=== PATIENT | male | born 1970 | race African-American/Black ===

== ENCOUNTER → 2016-10-06 | Day surgery (SDC) | payer OTHER ==
[~2016-10-06] MED LIST: ACET325T9 PO; AMLO1CAP12 PO; DOCU100C5 PO; FENTANYL PF 100 MCG/2 ML VIAL. IV PRN; FENTANYL PF 100 MCG/2 ML VIAL. ONE; HYDR25CA PO; HYDR50TA6 PO; HYDROMORPHONE 2 MG/ML VIAL. IV PRN; IV RINGERS,LACTATED 1000ML 1,000 ML IV SCH; LIDOCAINE 1% 1 ML SYRINGE. ID PRN; LIDOCAINE 2% PF Vial for OR 5 ML VIAL. ONE; MORPHINE SULFATE 2 MG/ML DISP.SYRIN. IV PRN; NABU500T PO; ONDANSETRON PF 4 MG/2 ML VIAL. IV PRN; PANT40TA5 PO; PROCHLORPERAZINE 10 MG/2 ML VIAL. IV PRN; PROPOFOL 20 ML IV ONE; TRAM50TA PO
[2016-10-06 07:53] VITALS: BP 119/83
--- NOTE | 2016-10-11 12:28 | CONS ---
DATE OF CONSULTATION: 10/06/2016 REFERRING PHYSICIAN: Dr. Pascal. REASON FOR CONSULTATION: Gastric ulcer for surveillance. HISTORY OF PRESENT ILLNESS: This is a 46-year-old -[place] male with past medical history significant for osteoarthritis, hypertension, hyperlipidemia with the gastric ulcer diagnosed in July. He has been on medical therapy, is here today for surveillance exam to confirm ulcer healing as 2-4% gastric ulcers are in fact gastric malignancies. He states he has continued pain and discomfort, but has had no hematemesis. Weight and appetite are stable. PAST MEDICAL HISTORY: Organic heart disease, osteoarthritis, hypertension, hyperlipidemia, gastric ulcer disease. MEDICATIONS: Presently include acetaminophen, amlodipine, pantoprazole, and tramadol. SOCIAL HISTORY: He is incarcerated, does not drink or smoke at this time. FAMILY HISTORY: Noncontributory. REVIEW OF SYSTEMS: Per records. PHYSICAL EXAMINATION: GENERAL: Reveals a well-nourished, well-developed -[place] male. VITAL SIGNS: Temperature is 97.9, pulse 71, respiratory rate is 18. HEENT: Normocephalic and atraumatic head. Pupils and extraocular muscles not tested. Sclerae anicteric. NECK: Supple. LUNGS: Clear. CARDIOVASCULAR: Reveals an S1, S2 without S3, S4 or appreciable murmur. ABDOMEN: Reveals a soft abdomen, normal bowel sounds, without appreciable hepatosplenomegaly. EXTREMITIES: Reveals no cyanosis, clubbing, or edema. IMPRESSION: Gastric ulcers. Surveillance endoscopy is recommended to confirm ulcer healing. Risks and benefits of procedure including risk of perforation have been discussed. The patient is willing to proceed at this time. I would like to thank Dr. Pascal for allowing us to consult and participate in the patient's care. JON MARMOLEJO MD DR: KAVITHA/andrade JOB#: [id number] / [id number] ALANA Coles MD
== END | disposition home or self-care (01) ==
LOC: ENDOS 06:25 → EEVIPCON 07:00
PROVIDERS: ATTEND Internal Medicine Gastroenterology
DX: K29.50 Unspecified chronic gastritis without bleeding (principal); I63.9 Cerebral infarction, unspecified; I50.9 Heart failure, unspecified; I20.9 Angina pectoris, unspecified; E78.00 Pure hypercholesterolemia, unspecified; I10 Essential (primary) hypertension; K21.9 Gastro-esophageal reflux disease without esophagitis; M19.90 Unspecified osteoarthritis, unspecified site; F17.200 Nicotine dependence, unspecified, uncomplicated
CPT/HCPCS: 43235; J2704; J3010

== ENCOUNTER 2018-05-27 10:07 | Emergency (ER) | payer SELFPAY ==
[~2018-05-27] VITALS: Ht 170.2 cm; Wt 95.3 kg
[~2018-05-27 10:07] MED LIST changes: +DOCU100C28 PO; -DOCU100C5 PO; -FENTANYL PF 100 MCG/2 ML VIAL. IV PRN; -FENTANYL PF 100 MCG/2 ML VIAL. ONE; -HYDROMORPHONE 2 MG/ML VIAL. IV PRN; -IV RINGERS,LACTATED 1000ML 1,000 ML IV SCH; -LIDOCAINE 1% 1 ML SYRINGE. ID PRN; -LIDOCAINE 2% PF Vial for OR 5 ML VIAL. ONE; -MORPHINE SULFATE 2 MG/ML DISP.SYRIN. IV PRN; -ONDANSETRON PF 4 MG/2 ML VIAL. IV PRN; -PROCHLORPERAZINE 10 MG/2 ML VIAL. IV PRN; -PROPOFOL 20 ML IV ONE
[2018-05-27] MEDS ORDERED: MORPHINE SULFATE 10 MG/ML VIAL. IM ONE (10:45)
[2018-05-27] MEDS ORDERED: diazePAM 5 MG TABLET PO ONE (10:45)
[2018-05-27] MEDS ORDERED: AMLO10TA4 PO (11:05)
[2018-05-27] MEDS ORDERED: DIAZ5TAB PO (11:05)
[2018-05-27] MEDS ORDERED: HYDR-971 PO (11:05)
--- NOTE | 2018-05-27 11:11 | PHYS DOC ---
Past Medical History Past Medical History: Arthritis, High Cholesterol, Hypertension, [place] Additional Past Medical Histor: ENLARGED HEART Past Surgical History: Other Additional Past Surgical Histo: R. KNEE ACL Alcohol Use: None Drug Use: None Adult General Chief Complaint Chief Complaint: BACK PAIN OR INJURY [facility] HPI Patient is a 48 year old male who presents with back pain. The patient has a known history of chronic back pain. Today, he was reaching above his head to pull down a small window. The window had recently been painted and offered some resistance. The patient felt a sudden spasm in the thoracic and lumbar part of his back and had sudden onset of significant pain. Patient presents to the ER with difficulty moving around because of pain. Pain is primarily thoracic and lumbar. He has no numbness, tingling, weakness. He has no focal neurologic complaints. He states the pain feels very similar to previous back pain which she has had. Slight health prior to onset of symptoms. Review of Systems Review of Systems Constitutional: Denies fever Eyes: Denies change in visual acuity HENT: Denies nasal congestion Respiratory: Denies cough or shortness of breath Cardiovascular: No additional information not addressed in HPI GI: Denies abdominal pain : Denies dysuria or hematuria Musculoskeletal: back pain as described above Integument: Denies rash or skin lesions Neurologic: Denies headache, focal weakness or sensory changes All other systems were reviewed and found to be within normal limits, except as documented in this note. Current Medications Current Medications Current Medications Medications (Trade) Dose Ordered Sig/Crispin Start Time Stop Time Status Last Admin Dose Admin Diazepam (Valium) 5 mg 1X ONCE 05/27/18 10:45 05/27/18 10:46 DC 05/27/18 10:39 5 MG Morphine Sulfate (Morphine Sulfate) 10 mg 1X ONCE 05/27/18 10:45 05/27/18 10:46 DC 05/27/18 10:40 10 MG Allergies Allergies Allergies Coded Allergies Type Severity Reaction Last Updated Verified enalaprilat Allergy Intermediate 08/15/16 Yes Physical Exam Physical Exam Constitutional: Well developed, well nourished, no acute distress, some antalgic movements HENT: Normocephalic, atraumatic, bilateral external ears normal Eyes: PERRLA, EOMI, conjunctiva normal Neck: Normal range of motion, no tenderness Cardiovascular:Heart rate regular rhythm Lungs & Thorax: Bilateral breath sounds clear Abdomen: Bowel sounds normal, soft, no tenderness Skin: Warm, dry, no erythema Back: spasm and TTP along paraspinal muscles of the lumbar and thoracic back. Extremities: No tenderness Neurologic: Alert and oriented X 3, 5/5 motor strength in all extremities Psychologic: Affect normal Current Patient Data Vital Signs Vital Signs Date Time Temp Pulse Resp B/P (MAP) Pulse Ox O2 Delivery O2 Flow Rate FiO2 05/27/18 10:30 98.2 52 18 190/111 (137) 98 Room Air 98.2 EKG EKG [] Radiology/Procedures Radiology/Procedures Patient is seen for simple sprain of the back. He was given a dose of morphine and Valium in the emergency department. His symptoms are much improved. Plan is for discharge home. The patient does normally take prednisone at baseline for rheumatoid arthritis. Because of this, no NSAIDs are used. He is given Valium to take at home along with hydrocodone which is a normal medication for him. He will follow-up with his primary care doctor. Of note, during the ED course, he did have high blood pressures with ranges over 200 systolic. At the time of discharge his blood pressure was 190. Patient is supposed to be taking Norvasc but has not been on this medication. He is provided a refill of the medication. Course & Med Decision Making Course & Med Decision Making Pertinent Labs and Imaging studies reviewed. (See chart for details) [] Dragon Disclaimer Dragon Disclaimer This electronic medical record was generated, in whole or in part, using a voice recognition dictation system. Departure Departure Impression: Primary Impression: Hypertension Additional Impression: Back strain Disposition: 01 HOME, SELF-CARE Condition: GOOD Patient Instructions: Back Pain, Adult, Pain Medicine Instructions, Easy-to- Read, Hypertension Scripts Diazepam (VALIUM) 5 Mg Tablet 5 MG PO TID for muscle spasm, #20 TAB Prov: TRUE MARIN DO 05/27/18 Hydrocodone/Apap 5-325 (NORCO 5-325 TABLET) 1 Each Tablet 1-2 EACH PO PRN Q6HRS PRN for severe pain, #20 as needed for pain Prov: TRUE MARIN DO 05/27/18 Amlodipine Besylate (NORVASC) 10 Mg Tablet 10 MG PO DAILY for 30 Days, #30 TAB Prov: TRUE MARIN DO 05/27/18 Problem Qualifiers TRUE MARIN DO May 27, 2018 11:11
[2018-05-27 11:20] VITALS: BP 170/82
== END 2018-05-27 11:28 | disposition home or self-care (01) ==
LOC: ER 10:07
DX: S39.012A Strain of muscle, fascia and tendon of lower back, initial encounter (principal); S29.012A Strain of muscle and tendon of back wall of thorax, initial encounter; I10 Essential (primary) hypertension; I25.2 Old myocardial infarction; G89.29 Other chronic pain; E78.00 Pure hypercholesterolemia, unspecified; Z88.8 Allergy status to other drugs, medicaments and biological substances; X58.XXXA Exposure to other specified factors, initial encounter; Y93.89 Activity, other specified; Y92.89 Other specified places as the place of occurrence of the external cause; Y99.8 Other external cause status
CPT/HCPCS: 96372; 99283; J2270

== ENCOUNTER 2019-04-26 02:13 | Emergency (ER) | payer SELFPAY ==
[~2019-04-26] VITALS: Ht 170.2 cm; Wt 95.3 kg
[~2019-04-26 02:13] MED LIST changes: +AMLO10TA4 PO; -AMLO1CAP12 PO; +AMLO1CAP13 PO; +DIAZ5TAB PO; +HYDR-3164 PO; -PANT40TA5 PO; +PANT40TA77 PO
[2019-04-26] MEDS ORDERED: PRED20TA PO (03:05)
[2019-04-26 03:12] VITALS: BP 179/103
--- NOTE | 2019-04-26 03:21 | PHYS DOC ---
Past Medical History Past Medical History: Arthritis, High Cholesterol, Hypertension, [place] Additional Past Medical Histor: ENLARGED HEART Past Surgical History: Other Additional Past Surgical Histo: R. KNEE ACL Alcohol Use: None Drug Use: None Adult General Chief Complaint Chief Complaint: PAIN CONTROL HPI HPI Patient is a 49 year old prednisoneDIFFUSE ARTHRITIS PAIN HAS HAD THIS LONGSTANDING BASIS GOT HIS HYDROCODONE YESTERDAY BUT SAID HE DIDNT TAKE THEM TOOK TWO VALIUMS MINIMAL RELIEF. HAS RA HAS B/L HAND AND LEFT FOOT PAIN, USUAL LOCATION NO TRAUMA NO FEVER All other ROS neg unless otherwise noted in HPI Review of Systems Review of Systems SEE ABOVE Current Medications Current Medications Current Medications Medications (Trade) Dose Ordered Sig/Crispin Start Time Stop Time Status Last Admin Dose Admin Ketorolac Tromethamine (Toradol 30mg Vial) 30 mg 1X ONCE 04/26/19 03:30 04/26/19 03:31 Oxycodone/ Acetaminophen (Percocet 5/325) 2 tab 1X ONCE 04/26/19 03:30 04/26/19 03:31 Prednisone (Prednisone) 50 mg 1X ONCE 04/26/19 03:30 04/26/19 03:31 Allergies Allergies Allergies Coded Allergies Type Severity Reaction Last Updated Verified enalaprilat Allergy Intermediate 08/15/16 Yes Physical Exam Physical Exam see above Constitutional: Well developed, well nourished, no acute distress, non-toxic appearance. [] HENT: Normocephalic, atraumatic, bilateral external ears normal, oropharynx moist, no oral exudates, nose normal. [] Eyes: PERRLA, EOMI, conjunctiva normal, no discharge. [] Pulmonary: Normal respiratory effort no increased work of breathing no obvious chest wall trauma Abdomen: Bowel sounds normal, soft, no tenderness, no masses, no pulsatile masses. [] Skin: Warm, dry, no erythema, no rash. [] Back: No tenderness, no CVA tenderness. [] Extremities: There is visible swelling bilateral wrist joints as well as the left ankle no erythema or induration. Consistent with known rheumatoid arthritis Neurologic: Alert and oriented X 3, normal motor function, normal sensory function, no focal deficits noted. [] Psychologic: Affect normal, judgement normal, mood normal. [] EKG EKG [] Radiology/Procedures Radiology/Procedures [] Course & Med Decision Making Course & Med Decision Making Pertinent Labs and Imaging studies reviewed. (See chart for details) []Patient has rheumatoid arthritis with an apparent acute flareup. Patient was given the above treatment in the emergency room as well as a prescription for prednisone for the next few days advised to take home pain medication regimen I did review K tracks he did get 120 hydrocodone yesterday No evidence of septic joint or anything else like that blood pressure was elevated the patient was in some discomfort in the emergency room Dragon Disclaimer Dragon Disclaimer This electronic medical record was generated, in whole or in part, using a voice recognition dictation system. Departure Departure Impression: Primary Impression: Chronic pain Disposition: HOME, SELF-CARE Condition: STABLE Patient Instructions: Arthritis, Nonspecific Scripts Prednisone (PREDNISONE) 20 Mg Tablet 1 TAB PO DAILY, #5 TAB Prov: PETRONA HICKMAN MD 04/26/19 PETRONA HICKMAN MD Apr 26, 2019 03:21
[2019-04-26] MEDS ORDERED: predniSONE 10 MG TABLET PO ONE (03:30)
[2019-04-26] MEDS ORDERED: oxyCODONE/APAP 5/325 1 TAB TABLET PO ONE (03:30)
[2019-04-26] MEDS ORDERED: KETOROLAC 30 MG/ML VIAL. IM ONE (03:30)
== END 2019-04-26 03:40 | disposition home or self-care (01) ==
LOC: ER 02:13
DX: G89.29 Other chronic pain (principal); M79.601 Pain in right arm; M79.672 Pain in left foot; M79.602 Pain in left arm; M06.9 Rheumatoid arthritis, unspecified; E78.00 Pure hypercholesterolemia, unspecified; I10 Essential (primary) hypertension; I25.2 Old myocardial infarction; Z88.8 Allergy status to other drugs, medicaments and biological substances
CPT/HCPCS: 96372; 99283; J1885; J7512

== ENCOUNTER 2019-05-14 23:56 | Emergency (ER) | payer SELFPAY ==
[~2019-05-14] VITALS: Ht 170.2 cm; Wt 113.4 kg
[~2019-05-14 23:56] MED LIST changes: +PRED20TA PO
--- NOTE | 2019-05-15 00:09 | PHYS DOC ---
Past Medical History Past Medical History: Arthritis, High Cholesterol, Hypertension, [place] Additional Past Medical Histor: ENLARGED HEART Past Surgical History: Other Additional Past Surgical Histo: R. KNEE ACL Alcohol Use: None Drug Use: None Adult General Chief Complaint Chief Complaint: chest pain and abdominal pain [facility] HPI Patient is a 49 year old male who presents via EMS with complaining of chest pain and abdominal pain. Patient states he was walking outside for a couple hours and then suddenly felt pain in left side of chest and abdomen as a pressure pain with radiation to his back and associated with shortness of breath and nausea and palpitation. Patient rated his pain 10 over 10 and states he had the same pain previously with diagnose of ulcer. Patient states he had a couple of beer tonight and denies using drugs. Patient is a poor historian. Review of Systems Review of Systems Constitutional: Denies fever or chills [] Eyes: Denies change in visual acuity, redness, or eye pain [] HENT: Denies nasal congestion or sore throat [] Respiratory: Denies cough or shortness of breath [] Cardiovascular: No additional information not addressed in HPI [] GI: Reports abdominal pain, nausea, denies vomiting, bloody stools or diarrhea [] : Denies dysuria or hematuria [] Musculoskeletal: Denies back pain or joint pain [] Integument: Denies rash or skin lesions [] Neurologic: Denies headache, focal weakness or sensory changes [] Endocrine: Denies polyuria or polydipsia [] All other systems were reviewed and found to be within normal limits, except as documented in this note. Current Medications Current Medications Current Medications Medications (Trade) Dose Ordered Sig/Crispin Start Time Stop Time Status Last Admin Dose Admin Famotidine (Pepcid Vial) 20 mg 1X ONCE 05/15/19 00:30 05/15/19 00:33 DC 05/15/19 00:31 20 MG Multi-Ingredient Mouthwash/Gargle (Gi Cocktail) 20 ml 1X ONCE 05/15/19 00:30 05/15/19 00:33 DC 05/15/19 00:31 20 ML Sodium Chloride 1,000 ml @ 1,000 mls/hr Q1H 05/15/19 00:15 05/15/19 01:14 DC 05/15/19 00:29 1,000 MLS/HR Allergies Allergies Allergies Coded Allergies Type Severity Reaction Last Updated Verified enalaprilat Allergy Intermediate 08/15/16 Yes Physical Exam Physical Exam Constitutional: Well nourished, mild distress, non-toxic appearance, anxious, smelling of alcohol on breath. [] HENT: Normocephalic, atraumatic. Eyes: PERRLA, EOMI, conjunctiva normal, no discharge. [] Neck: Normal range of motion, no tenderness, supple, no stridor. [] Cardiovascular:Heart rate regular rhythm, no murmur , reproducible chest wall tenderness[] Lungs & Thorax: Bilateral breath sounds clear to auscultation [] Abdomen: Bowel sounds normal, soft, no tenderness, no masses, no pulsatile masses. [] Skin: Warm, dry, no erythema, no rash. [] Back: No tenderness, no CVA tenderness. [] Extremities: No tenderness, no cyanosis, no clubbing, ROM intact, no edema. [] Neurologic: Alert and oriented X 3, no focal deficits noted. [] Psychologic: Affect anxious, mood normal. [] Current Patient Data Vital Signs Vital Signs Date Time Temp Pulse Resp B/P (MAP) Pulse Ox O2 Delivery O2 Flow Rate FiO2 05/15/19 00:00 98.3 61 20 139/84 (102) 98 Room Air 98.3 Lab Values Laboratory Tests Test 05/15/19 00:10 05/15/19 01:00 White Blood Count 6.5 x10^3/uL (4.0-11.0) Red Blood Count 4.52 x10^6/uL (4.30-5.70) Hemoglobin 12.9 g/dL (13.0-17.5) L Hematocrit 37.8 % (39.0-53.0) L Mean Corpuscular Volume 84 fL (79-100) Mean Corpuscular Hemoglobin 29 pg (25-35) Mean Corpuscular Hemoglobin Concent 34 g/dL (31-37) Red Cell Distribution Width 16.4 % (11.5-14.5) H Platelet Count 270 x10^3/uL (140-400) Neutrophils (%) (Auto) 49 % (31-73) Lymphocytes (%) (Auto) 43 % (24-48) Monocytes (%) (Auto) 5 % (0-9) Eosinophils (%) (Auto) 2 % (0-3) Basophils (%) (Auto) 1 % (0-3) Neutrophils # (Auto) 3.2 x10^3/uL (1.8-7.7) Lymphocytes # (Auto) 2.8 x10^3/uL (1.0-4.8) Monocytes # (Auto) 0.3 x10^3/uL (0.0-1.1) Eosinophils # (Auto) 0.1 x10^3/uL (0.0-0.7) Basophils # (Auto) 0.1 x10^3/uL (0.0-0.2) Prothrombin Time 12.5 SEC (11.7-14.0) Prothrombin Time INR 1.0 (0.8-1.1) Sodium Level 143 mmol/L (136-145) Potassium Level 3.6 mmol/L (3.5-5.1) Chloride Level 108 mmol/L (98-107) H Carbon Dioxide Level 25 mmol/L (21-32) Anion Gap 10 (6-14) Blood Urea Nitrogen 9 mg/dL (8-26) Creatinine 0.8 mg/dL (0.7-1.3) Estimated GFR (Cockcroft-Gault) 125.4 BUN/Creatinine Ratio 11 (6-20) Glucose Level 91 mg/dL (70-99) Calcium Level 8.7 mg/dL (8.5-10.1) Magnesium Level 1.9 mg/dL (1.8-2.4) Total Bilirubin 0.3 mg/dL (0.2-1.0) Aspartate Amino Transferase (AST) 17 U/L (15-37) Alanine Aminotransferase (ALT) 18 U/L (16-63) Alkaline Phosphatase 86 U/L (46-116) Creatine Kinase 165 U/L (39-308) Troponin I Quantitative < 0.017 ng/mL (0.000-0.055) TG-Nbl-Z-Type Natriuretic Peptide 43 pg/mL (0-124) Total Protein 6.6 g/dL (6.4-8.2) Albumin 3.0 g/dL (3.4-5.0) L Albumin/Globulin Ratio 0.8 (1.0-1.7) L Lipase 105 U/L (73-393) Ethyl Alcohol Level 113 mg/dL (0-10) H Urine Collection Type Unknown Urine Color Yellow Urine Clarity Clear Urine pH 6.0 Urine Specific [place] 1.010 Urine Protein Negative mg/dL (NEG-TRACE) Urine Glucose (UA) Negative mg/dL (NEG) Urine Ketones (Stick) Negative mg/dL (NEG) Urine Blood Negative (NEG) Urine Nitrite Negative (NEG) Urine Bilirubin Negative (NEG) Urine Urobilinogen Dipstick 1.0 mg/dL (0.2 mg/dL) Urine Leukocyte Esterase Negative (NEG) Urine RBC 0 /HPF (0-2) Urine WBC 0 /HPF (0-4) Urine Squamous Epithelial Cells Occ /LPF Urine Bacteria 0 /HPF (0-FEW) Urine Opiates Screen Neg (NEG) Urine Methadone Screen Neg (NEG) Urine Barbiturates Neg (NEG) Urine Phencyclidine Screen Pos (NEG) Urine Amphetamine/Methamphetamine Neg (NEG) Urine Benzodiazepines Screen Neg (NEG) Urine Cocaine Screen Neg (NEG) Urine Cannabinoids Screen Pos (NEG) Urine Ethyl Alcohol Pos (NEG) Laboratory Tests 05/15/19 00:10 Laboratory Tests 05/15/19 00:10 EKG EKG EKG interpreted by me. EKG at 000 showed sinus bradycardia at rate of 56, no acute ST and T-wave elevation. Radiology/Procedures Radiology/Procedures [][facility] [address] [place] [address] IMAGING REPORT Signed PATIENT: ISSAC PRINCE ACCOUNT: [id number] : 1970 LOCATION: ER AGE: 49 SEX: M EXAM STATUS: REG ER ORD. PHYSICIAN: JOSE LINDSAY MD REASON: chest pain and shortness of breath after using alcohol PROCEDURE: PORTABLE CHEST 1V EXAM: CHEST ONE VIEW. HISTORY: Chest pain, shortness of breath. COMPARISON: 08/14/2016. FINDINGS: A frontal view of the chest is obtained. The inspiration is small. There are no confluent infiltrates. There is no pneumothorax or pleural effusion. The heart is moderate enlarged. IMPRESSION: 1. Moderate cardiomegaly. Electronically signed by: Ra Gallardo MD (05/15/2019 12:56 AM) [facility] DICTATED and SIGNED BY: HUMBLE GALLARDO MD DATE: 05/15/19 0056 Course & Med Decision Making Course & Med Decision Making Pertinent Labs and Imaging studies reviewed. (See chart for details) Evaluation of patient in ER showed 49-year-old male patient brought in by EMS because of sudden onset of left-sided and left lower abdominal pain. Patient was very agitated in ER and if this pain 10 over 10. Patient had reproducible chest pain and abdomen was soft and nontender. Labs was unremarkable except for alcohol of 113 and UDS showed positive PCP and marijuana. Patient treated with GI cocktail and Pepcid and felt better and able to sleep. I've spoken with the patient and/or caregivers. I've explained the patient's condition, diagnosis and treatment plan based on information available to me at this time. I've answered the patient's and/or caregivers questions and addressed any concerns. The patient and/or caregivers have a good understanding the patient's diagnosis, condition and treatment plan as can be expected at this point. Vital signs have been stabilized. The patient's condition is stable for discharge from the emergency department. The patient will pursue further outpatient evaluation with her primary care provider or other designated consulting physician as outlined in the discharge instructions. Patient and/or caregivers are agreeable to this plan of care and follow-up instructions have been explained in detail. The patient and/or caregivers have received these instructions in written format and expressed understanding of these discharge instructions. The patient and her caregivers are aware that if any significant change in condition or worsening of symptoms should prompt him to immediately return to this of the closest emergency department. If an emergent department is not readily available I would [email or web address] palacio him to call 911. Duglas Disclaimer Duglas Disclaimer This electronic medical record was generated, in whole or in part, using a voice recognition dictation system. Departure Departure Impression: Primary Impression: Non-cardiac chest pain Additional Impressions: PCP abuse Alcohol abuse Abdominal pain Anxiety Tobacco abuse Tobacco abuse counseling Cardiomegaly Disposition: HOME, SELF-CARE (at 0133) Condition: IMPROVED Referrals: NO PCP (PCP) Patient Instructions: Chest Pain (Nonspecific), Smoking Cessation, Tips For Success, Substance Abuse-Brief Additional Instructions: Stop using drugs and alcohol Follow-up with your primary care physician in 3-5 days Return to ER if not getting better The HEART Score for CP Pts HEART Score for Chest Pain: HEART Score for Chest Pain Response (Comments) Value History Slighlty/Non-Suspicious 0 ECG Normal 0 Age >45 - < 65 1 Risk Factors >3 Risk Factors or Hx CAD 2 Troponin < Normal Limit 0 Total 3 Risk Factors: Risk Factors: DM, Current or recent (<one month) smoker, HTN, HLP, family history of CAD, obesity. Risk Scores: Score 0 - 3: 2.5% MACE over next 6 weeks - Discharge Home Score 4 - 6: 20.3% MACE over next 6 weeks - Admit for Clinical Observation Score 7 - 10: 72.7% MACE over next 6 weeks - Early Invasive Strategies Problem Qualifiers Additional Impressions: Abdominal pain Abdominal location: unspecified location Qualified Codes: R10.9 - Unspecified abdominal pain JOSE LINDSAY MD May 15, 2019 00:09
[2019-05-15 00:15] LABS: BASO # 0.1 x10^3/uL (0.0-0.2); BASO % 1 % (0-3); EOS # 0.1 x10^3/uL (0.0-0.7); EOS % 2 % (0-3); HEMATOCRIT 37.8 % (39.0-53.0); HEMOGLOBIN 12.9 g/dL (13.0-17.5); LYMPH # 2.8 x10^3/uL (1.0-4.8); LYMPH % 43 % (24-48); MEAN CORPUSCULAR HEMOGLOBIN 29 pg (25-35); MEAN CORPUSCULAR HGB CONC 34 g/dL (31-37); MEAN CORPUSCULAR VOLUME 84 fL (79-100); MONO # 0.3 x10^3/uL (0.0-1.1); MONO % 5 % (0-9); NEUT # 3.2 x10^3/uL (1.8-7.7); NEUT % 49 % (31-73); PLATELET COUNT 270 x10^3/uL (140-400); RED BLOOD COUNT 4.52 x10^6/uL (4.30-5.70); RED CELL DISTRIBUTION WIDTH 16.4 % (11.5-14.5); WHITE BLOOD COUNT 6.5 x10^3/uL (4.0-11.0)
[2019-05-15] MEDS ORDERED: IV NORMAL SALINE 1000ML BAG 1,000 ML IV SCH (00:15)
[2019-05-15 00:25] LABS: CALCIUM 8.7 mg/dL (8.5-10.1); CREATININE 0.8 mg/dL (0.7-1.3); GFR 125.4; POTASSIUM 3.6 mmol/L (3.5-5.1); PROTHROMBIN TIME PATIENT 12.5 SEC (11.7-14.0)
[2019-05-15] MEDS ORDERED: FAMOTIDINE 20 MG/2 ML VIAL IVP ONE (00:30)
[2019-05-15] MEDS ORDERED: LIDO:MAALOX 1:1 20 ML SINGLE DOSE. SWSW ONE (00:30)
[2019-05-15 00:32] LABS: ALBUMIN/GLOBULIN RATIO 0.8 (1.0-1.7); MAGNESIUM 1.9 mg/dL (1.8-2.4); TOTAL BILIRUBIN 0.3 mg/dL (0.2-1.0); TOTAL PROTEIN 6.6 g/dL (6.4-8.2)
--- NOTE | 2019-05-15 00:59 | RAD ---
EXAM: CHEST ONE VIEW. HISTORY: Chest pain, shortness of breath. COMPARISON: 08/14/2016. FINDINGS: A frontal view of the chest is obtained. The inspiration is small. There are no confluent infiltrates. There is no pneumothorax or pleural effusion. The heart is moderate enlarged. IMPRESSION: 1. Moderate cardiomegaly. Electronically signed by: Ra Gallardo MD (05/15/2019 12:56 AM) [facility]
[2019-05-15 01:06] LABS: BILIRUBIN,URINE NEGATIVE (NEG); CLARITY,URINE CLEAR; COLOR,URINE YELLOW; NITRITE,URINE NEGATIVE (NEG); PROTEIN,URINE NEGATIVE (NEG-TRACE)
[2019-05-15 01:13] LABS: BARBITURATES NEG (NEG); BENZODIAZEPINES NEG (NEG); CANNABINOIDS POS (NEG); COCAINE NEG (NEG); METHADONE NEG (NEG); OPIATES NEG (NEG); PHENCYCLIDINE POS (NEG)
[2019-05-15 01:15] VITALS: BP 118/68
[2019-05-15 01:15] LABS: BACTERIA,URINE 0 /HPF (0-FEW); RBC,URINE 0 /HPF (0-2); SQUAMOUS EPITHELIAL CELL,UR OCC /LPF; WBC,URINE 0 /HPF (0-4)
[2019-05-15 01:16] LABS: AMPHETAMINE/METHAMPHETAMINE NEG (NEG)
--- NOTE | 2019-05-15 06:17 | EKG ---
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
== END 2019-05-15 01:45 | disposition home or self-care (01) ==
LOC: ER 23:56
DX: R07.89 Other chest pain (principal); R10.9 Unspecified abdominal pain; F16.10 Hallucinogen abuse, uncomplicated; F41.9 Anxiety disorder, unspecified; I51.7 Cardiomegaly; R11.0 Nausea; F10.10 Alcohol abuse, uncomplicated; Y90.5 Blood alcohol level of 100-119 mg/100 ml; M19.90 Unspecified osteoarthritis, unspecified site; Z71.6 Tobacco abuse counseling; E78.00 Pure hypercholesterolemia, unspecified; Z88.8 Allergy status to other drugs, medicaments and biological substances
CPT/HCPCS: 36415; 71045; 80053; 80307; 81001; 82550; 83690; 83735; 83880; 84484; 85025; 85610; 93005; 96374; 99285; G0480; J3490; J7030